=== PATIENT | male | born 1935 | race Caucasian/White ===

== ENCOUNTER 2017-02-27 14:48 | Outpatient (CLI) | payer MEDICARE, OTHER ==
[2015-08-15 09:34] VITALS: BP 138/70
--- NOTE | 2017-02-28 11:51 | OP Clinic Progress Note ---
REFERRING PHYSICIAN: Dr. Bria Howard REASON FOR VISIT: This 81-year-old man is seen with a history of having had an acute imbalance episode at the very beginning of February. He had worked pretty hard cutting down a tree ([place]). This had been several weeks before. He felt somewhat weak since the sawing down of the tree. He mostly noticed he leaned and lurched fairly markedly to the right side. He was severely imbalanced. He did not fall but was extremely unstable, and again, more weakness to the right side than the left and he also felt pressure more in the right ear, but also in the left. He was seen in urgent care and then in the [facility]. At that time, they gave him amoxicillin and meclizine 25 mg 3 times a day. He had a brain scan that did not show any acute pathology. Both ear canals are clear. Both eardrums are retracted, particularly with the malleus medially deviated. There is mild erythema of both eardrums. There is not fluid in either middle ear. This was the observation noted at the urgent care or at the [facility]. PLAN: The patient states that he is no longer wobbly and he does not feel as if he has any increased risk of falling. I would not do anything different currently. I do not see an infection. If he wanted to take the meclizine at either 12.5 mg or at 25 mg over the counter on a p.r.n. basis, he is welcome to do that. If he has an additional episode, he could consider a myringotomy in the ear which could be done with a topical anesthetic in the clinic. Diagrams were used to help review the pathology with the patient and his and I think they have an improved understanding overall. Again, I would not have take any significant additional treatment, as he stated at least 3 times that he feels he is back to normal and does not have imbalance issues currently. cc: Dr. Bria SOLER
== END 2017-02-27 14:50 ==
LOC: ENT 14:48
PROVIDERS: ATTEND Otolaryngology
DX: R53.1 Weakness (principal); R26.81 Unsteadiness on feet
CPT/HCPCS: G0463